=== PATIENT | male | born 1990 | race African-American/Black ===

== ENCOUNTER 2023-06-11 11:50 | Inpatient (IN) | payer SELFPAY ==
--- OUTSIDE RECORDS SUMMARY | 2023-06-11 11:53 | XMS REPORT | Continuity of Care Document ---
Author Name Unknown Address [address] [facility] [address] [place] [address] [facility] thconnect Address [address] [facility] [address] [place] [address] Care Team Providers Care Presidential Support Specialist Name Role Phone Margaret Denise Primary Care Physician + [phone] NAJMA RAMAN Attending Clinician Unavaila NAJMA Cohn Attending Clinician Unavaila CHINO Mcgarry Attending Clinician Unavailable Jigna Kirk LMSW Attending Clinician [phone] MARGARET QUIROZ Attending Clinician Unavailable Margaret Denise Attending Clinician [phone] Najma Raman MD Attending Clinician + [phone] Doctor Unassigned, Basye Attending Clinician U CECIL Howard Attending Clinician Unavailable Cecil Hawley MD Attending Clinician [phone] Sherrie Solano Attending Clinician [phone] Marly Darling Attending Clinician [phone] MARLY MENESES Attending Clinician UnavailFELICITA Gustafson Attending Clinician Unavailable Chino Calix MD Attending Clinician [phone] KIMBERLY BRENNER Attending Clinician Unavailable Kimberly Brenner MD Attending Clinician +[phone] Michelle Lilly Attending Clinician MICHELLE RICHMOND Attending Clinician Unavailabl Lebron Poe MD Attending Clinician LEBRON MADISON Attending Clinician Unavailable Marlo Dominguez MD Attending Clinician MARLO DOMINGUEZ Attending Clinician Unavailable CECIL HAWLEY Admitting Clinician Unavailable Lebron Madison MD Admitting Clinician [phone] LEBRON MADISON Admitting Clinician Unavailable Problems Condition Name Condition Details Condition Category Status Onset Date Resolution Date Last Treatment Date Treating Clinician Comments Source PRASANTH (obstructi ve sleep apnea) PRASANTH (obstructi ve sleep apnea) Disease Active 2021-06 00:00: 00 [facility] No known active problems No known active problems Disease [facility] Allergies, Adverse Reactions, Alerts Allergy Name Allergy Type Status Severity Reaction(s) Onset Date Inactive Date Treating Clinician Comments Source NO KNOWN ALLERGIE S Drug Class Active [facility] Social History Social Habit Start Date Stop Date Quantity Comments Source History SDOH Alcohol Frequency [facility] History SDOH Alcohol Std Drinks [facility] History SDOH Alcohol Binge [facility] to SARS-CoV-2 (event) 2022-03-04 00:00:00 2022-03-14 11:03:00 Not sure [facility] Alcohol intake 2022-02-20 00:00:00 2022-02-20 00:00:00 .29 /d [facility] History of Social function 2022-02-19 00:00:00 2022-02-19 00:00:00 [facility] Tobacco use and exposure 2020-11-21 00:00:00 2020-11-21 00:00:00 Smokeless tobacco non-user [facility] Alcohol Comment 2020-11-21 00:00:00 2020-11-21 00:00:00 ocassionally [facility] Sex Assigned At 1990 00:00:00 1990 00:00:00 [facility] Smoking Status Start Date Stop Date Source Never smoked tobacco [facility] Medications Ordered Medication Name Filled Medication Name Start Date Stop Date Current Medication? Ordering Clinician Indication Dosage Frequency Signature (SIG) Comments Components Source amLODIPine 5 mg tablet 2021-06 0 00:00: 00 Yes [id number] 5mg Take 1 tablet by mouth in the morning. [facility] amLODIPine 5 mg tablet 2021-06 0 00:00: 00 Yes [id number] 5mg Take 1 tablet by mouth in the morning. [facility] amLODIPine 5 mg tablet 2021-06 00:00: 00 Yes [id number] 5mg Take 1 tablet by mouth in the morning. [facility] amLODIPine 5 mg tablet 2021-06 00:00: 00 Yes [id number] 5mg Take 1 tablet by mouth in the morning. [facility] metoprolol succinate XL 50 mg 24 hr tablet 02-19 00:00: 00 Yes [id number] 50mg Take 1 tablet by mouth in the morning. [facility] metoprolol succinate XL 50 mg 24 hr tablet 0 02-19 00:00: 00 Yes [id number] 50mg Take 1 tablet by mouth in the morning. [facility] metoprolol succinate XL 50 mg 24 hr tablet 0 02-19 00:00: 00 Yes [id number] 50mg Take 1 tablet by mouth in the morning. [facility] metoprolol succinate XL 50 mg 24 hr tablet 0 02-19 00:00: 00 Yes [id number] 50mg Take 1 tablet by mouth in the morning. [facility] metoprolol succinate XL 50 mg 24 hr tablet 0 02-19 00:00: 00 Yes [id number] 50mg Take 1 tablet by mouth in the morning. [facility] metoprolol succinate XL 50 mg 24 hr tablet 0 02-19 00:00: 00 Yes [id number] 50mg Take 1 tablet by mouth in the morning. [facility] metoprolol succinate XL 50 mg 24 hr tablet 2021-0 02-19 00:00: 00 Yes [id number] 50mg Take 1 tablet by mouth in the morning. [facility] metoprolol succinate XL 50 mg 24 hr tablet 9-14 00:00: 00 Yes [id number] 50mg Take 1 tablet by mouth in the morning. [facility] metoprolol succinate XL 50 mg 24 hr tablet 14 00:00: 00 Yes [id number] 50mg Take 1 tablet by mouth in the morning. [facility] metoprolol succinate XL 50 mg 24 hr tablet 8-06 00:00: 00 02-19 00:00 :00 No [id number] 50mg Take 1 tablet by mouth daily. [facility] Blood Pressure Kit-Extra Large Kit 16 00:00: 00 Yes [id number] Use as directed [facility] lisinopriL- hydrochloro thiazide 20-25 mg per tablet 11-21 00:00: 00 Yes [id number] 1{tbl} Take 1 tablet by mouth daily. [facility] Blood Pressure Kit-Extra Large Kit 11-21 00:00: 00 Yes [id number] Use as directed [facility] lisinopriL- hydrochloro thiazide 20-25 mg per tablet 11-21 00:00: 00 Yes [id number] 1{tbl} Take 1 tablet by mouth daily. [facility] Blood Pressure Kit-Extra Large Kit 11-21 00:00: 00 Yes [id number] Use as directed [facility] lisinopriL- hydrochloro thiazide 20-25 mg per tablet 0 16 00:00: 00 Yes [id number] 1{tbl} Take 1 tablet by mouth daily. [facility] Blood Pressure Kit-Extra Large Kit 0 16 00:00: 00 Yes [id number] Use as directed [facility] lisinopriL- hydrochloro thiazide 20-25 mg per tablet 0 16 00:00: 00 Yes [id number] 1{tbl} Take 1 tablet by mouth daily. [facility] Blood Pressure Kit-Extra Large Kit 0 6-16 00:00: 00 Yes [id number] Use as directed [facility] Blood Pressure Kit-Extra Large Kit 0 11-21 00:00: 00 Yes [id number] Use as directed [facility] Blood Pressure Kit-Extra Large Kit 0 11-21 00:00: 00 Yes [id number] Use as directed [facility] Blood Pressure Kit-Extra Large Kit 0 11-21 00:00: 00 Yes [id number] Use as directed [facility] Blood Pressure Kit-Extra Large Kit 0 11-21 00:00: 00 Yes [id number] Use as directed [facility] Blood Pressure Kit-Extra Large Kit 0 11-21 00:00: 00 Yes [id number] Use as directed [facility] lisinopriL- hydrochloro thiazide 20-25 mg per tablet 11-21 00:00: 00 03-14 00:00 :00 No [id number] 1{tbl} Take 1 tablet by mouth daily. [facility] lisinopriL- hydrochloro thiazide 20-25 mg per tablet 11-21 00:00: 00 03-14 00:00 :00 No [id number] 1{tbl} Take 1 tablet by mouth daily. [facility] Vital Signs Vital Name Observation Time Observation Value Comments S ourswapnil Systolic blood pressure 2022-03-14 16:16:00 170 mm[Hg] [facility] Diastolic blood pressure 2022-03-14 16:16:00 102 mm[Hg] [facility] Heart rate 2022-03-14 16:15:00 79 /min [facility] Body temperature 2022-03-14 16:15:00 36.61 [facility] Body height 2022-03-14 16:15:00 180.3 cm [facility] Body weight 2022-03-14 16:15:00 169.101 kg [facility] BMI 2022-03-14 16:15:00 52.00 kg/m2 [facility] Oxygen saturation in Arterial blood by Pulse oximetry 2022-03-14 16:15:00 95 /min [facility] Systolic blood pressure 2022-03-06 21:00:00 183 mm[Hg] [facility] Diastolic blood pressure 2022-03-06 21:00:00 138 mm[Hg] [facility] Heart rate 2022-03-06 21:00:00 95 /min [facility] Body temperature 2022-03-06 20:46:00 36.72 [facility] Respiratory rate 2022-03-06 20:46:00 16 /min [facility] Body height 2022-03-06 20:46:00 177.8 cm [facility] Body weight 2022-03-06 20:46:00 169.691 kg [facility] BMI 2022-03-06 20:46:00 53.68 kg/m2 [facility] Oxygen saturation in Arterial blood by Pulse oximetry 2022-03-06 20:46:00 96 /min [facility] Systolic blood pressure 2022-02-19 16:06:00 177 mm[Hg] [facility] Diastolic blood pressure 2022-02-19 16:06:00 121 mm[Hg] [facility] Heart rate 2022-02-19 16:05:00 120 /min [facility] Encounters Start Date/Time End Date/Time Encounter Type Admission Type Attending Clinicians Care Facility Care Department Encounter ID Source 2022-06-19 10:00:00 2022-06-19 10:00:00 Outpatient NAJMA LAGUNA STRAHIL [facility] [id number] [facility] 2022-04-30 14:30:00 2022-04-30 14:30:00 Outpatient NAJMA LAGUNA STRAH[facility] [id number] [facility] 2022-04-09 10:40:00 2022-04-09 10:40:00 Outpatient NAJMA LAGUNA [facility]AH[facility] [id number] [facility] 2022-03-27 10:00:00 2022-03-27 10:00:00 Outpatient R NAJMA RAMAN [facility] [id number] [facility] 2022-03-17 00:00:00 2022-03-17 00:00:00 Patient Outreach Jigna Kirk [facility] 1.2.840.114 350.1.13.10 4.2.7.2.686 [id number] [facility] 2022-03-14 11:30:00 2022-03-14 11:48:06 Outpatient R MARGARET QUIROZ [facility] [id number] [facility] 2022-03-14 11:30:00 2022-03-14 11:48:06 Office Visit Margaret Quiroz [facility] 1.2.840.114 350.1.13.10 4.2.7.2.686 [id number] [facility] 2022-03-12 00:00:00 2022-03-12 00:00:00 Letter (Out) Margaret Quiroz [facility] 1.2.840.114 350.1.13.10 4.2.7.2.686 [id number] [facility] 2022-03-06 15:30:00 2022-03-06 16:00:00 [facility] 1..840.114 350.1.13.10 4.2.7.2.686 [id number] [facility] 2022-03-06 15:30:00 2022-03-06 15:30:00 Outpatient R NAJMA RAMAN [facility] [id number] [facility] 2022-02-27 13:30:00 2022-02-27 13:30:00 Outpatient R NAJMA RAMAN [facility] [id number] [facility] 2022-02-26 00:00:00 2022-02-26 00:00:00 Patient Secure Msg Doctor Unassigned, Basye [facility] 1.840.114 350.1.13.10 4.2.7.2.686 [id number] [facility] 2022-02-20 00:00:00 2022-02-20 00:00:00 Patient Secure Msg Doctor Unassigned, Basye [facility] 1.840.114 350.1.13.10 4.2.7.2.686 [id number] [facility] 2022-02-19 12:21:00 2022-02-19 16:51:00 Emergency X CECIL HAWLEY [facility] ERT [id number] [facility] 2022-02-19 12:21:00 2022-02-19 16:51:00 Emergency Cecil Hawley [facility] 1.840.114 350.1.13.10 4.2.7.2.686 [id number] [facility] 2022-02-19 12:21:00 2022-02-19 16:51:00 Emergency X CECIL HAWLEY [facility] ERT [id number] [facility] 2022-02-19 11:00:00 2022-02-19 14:10:28 Office Visit Margaret Quiroz [facility] 1.840.114 350.1.13.10 4.2.7.2.686 [id number] [facility] 2022-02-19 11:00:00 2022-02-19 14:10:28 Outpatient R MARGARET QUIROZ [facility] [id number] [facility] 2022-02-19 11:00:00 2022-02-19 11:00:00 Outpatient R MARGARET QUIROZ [facility] [id number] [facility] 2022-02-19 00:00:00 2022-02-19 00:00:00 Orders Only Doctor Unassigned, Basye [facility] 1.2.840.114 350.1.13.10 4.2.7.2.686 [id number] [facility] 2021-03-05 14:15:00 2021-03-05 23:59:00 Hospital Encounter Sherrie Dupont [facility] ([facility] 1.2.840.114 350.1.13.10 4.2.7.2.686 [id number] [facility] 2021-03-05 13:52:25 2021-03-05 14:22:25 Office Visit Sherrie Dupont [facility] Building 1.2.840.114 350.1.13.10 4.2.7.2.686 [id number] [facility] 2021-03-05 13:30:00 2021-03-05 13:30:00 Outpatient R MARLY MENESES [facility] [id number] [facility] 2021-01-22 15:20:00 2021-01-22 15:20:00 Outpatient R FELICITA HEBERT [facility] [id number] [facility] 2021-01-11 10:15:10 2021-01-11 11:01:19 Office Visit Chino Calix [facility] [employer] [facility] 1.2.840.114 350.1.13.10 4.2.7.2.686 [id number] [facility] 2021-01-11 10:20:00 2021-01-11 10:20:00 Outpatient R CHINO CALIX [facility] [id number] [facility] 2021-01-08 14:00:00 2021-01-08 14:00:00 Outpatient R JESUSKIMBERLY [facility] [id number] [facility] 2020-12-10 00:00:00 2020-12-10 00:00:00 Orders Only Doctor Unassigned, Basye [facility] 1.2840.114 350.1.13.10 4.2.7.2.686 [id number] [facility] 2020-11-30 00:00:00 2020-11-30 00:00:00 Telephone Kimberly Brenner [facility] 1.2.840.114 350.1.13.10 4.2.7.2.686 [id number] [facility] 2020-11-29 00:00:00 2020-11-29 00:00:00 Telephone Kimberly Brenner [facility] 1.2840.114 350.1.13.10 4.2.7.2.686 [id number] [facility] 2020-11-21 08:43:27 2020-11-21 10:18:04 Office Visit Michelle [facility] 1.2840.114 350.1.13.10 4.2.7.2.686 [id number] [facility] 2020-11-21 09:00:00 2020-11-21 09:00:00 Outpatient R MICHELLE RICHMOND [facility] [id number] [facility] 2020-11-21 00:00:00 2020-11-21 00:00:00 Orders Only Doctor Unassigned, Basye [facility] 1.2840.114 350.1.13.10 4.2.7.2.686 [id number] [facility] 2020-09-22 14:10:00 2020-09-22 16:16:00 Emergency Person Le[facility] 1.2.840.114 350.1.13.10 4.2.7.2.686 [id number] [facility] 2020-09-22 14:04:00 2020-09-22 14:04:00 Emergency X UGO MADISONSHUA [facility] ERT [id number] [facility] 2020-09-22 10:35:00 2020-09-22 13:00:00 Emergency Marlo Dominguez [facility] 1.2.840.114 350.1.13.10 4.2.7.2.686 [id number] [facility] 2020-09-22 10:35:00 2020-09-22 10:35:00 Emergency X MARLO DOMINGUEZ [facility] ERT [id number] [facility]
[2023-06-11 12:34] LABS: Absolute Lymphocytes (CBC) 1.6 K/uL (0.7-4.9); Hematocrit 41.7 % (39.6-49.0); Lymphocytes % 26.3 % (15.3-44.8); MCV 82.6 fL (80-100); MPV 9.6 fL (7.6-11.3); Platelets 148 thou/uL (152-406); RBC Red Blood Cell Count 5.04 M/uL (4.33-5.43)
[2023-06-11 12:51] LABS: Potassium 2.8 mEq/L (3.5-5.1)
[2023-06-11 13:33] LABS: Arterial Blood Carboxyhemoglob 1.1 % (0-1.5); Blood Gas Oxyhemoglobin 73.7 % (94-97)
--- NOTE | 2023-06-11 13:38 | ER ---
Nurse's Notes [facility] Name: Lebron Lewis Age: 33 yrs Sex: Male : 1990 Arrival Date: 06/11/2023 Time: 11:50 Bed 17 Private MD: Diagnosis: Diabetic ketoacidosis;Diabetes;Hyperglycemia, unspecified;Hypokalemia Presentation: 06/11 11:57 Chief complaint: Patient states: "I went to a clinic and they said to come here because aa5 my blood pressure is high". Pt reports fatigue. Coronavirus screen: fatigue. Ebola Screen: Patient denies travel to an Ebola-affected area in the 21 days before illness onset. Initial Sepsis Screen: Does the patient meet any 2 criteria? HR > 90 bpm. Does the patient have a suspected source of infection? No. Patient's initial sepsis screen is negative. Risk Assessment: Do you want to hurt yourself or someone else? Patient reports no desire to harm self or others. Onset of symptoms was June 11, 2023. 11:57 Method Of Arrival: Ambulatory aa5 11:57 Acuity: ROBERTA 3 aa5 Historical: - Allergies: 12:00 No Known Allergies; aa5 - Home Meds: 12:00 None [Active]; aa5 - PMHx: 12:00 None; aa5 - Immunization history:: Adult Immunizations unknown. - Social history:: Smoking status: Patient denies any tobacco usage or history of. Screenin:55 [facility] ED Fall Risk Assessment (Adult) History of falling in the last 3 months, db including since admission No falls in past 3 months (0 pts). [facility] ED Fall Risk Assessment (Adult) Score/Fall Risk Level 0 - 2 = Low Risk Oriented to surroundings, Maintained a safe environment. Abuse screen: Denies threats or abuse. Denies injuries from another. Nutritional screening: No deficits noted. Tuberculosis screening: No symptoms or risk factors identified. Assessment: 12:41 Reassessment: Patient appears in no apparent distress at this time. Patient and/or db family updated on plan of care and expected duration. Pain level reassessed. Patient is alert, oriented x 3, equal unlabored respirations, skin warm/dry/pink. General: Appears in no apparent distress. comfortable, Behavior is calm, cooperative. Pain: Denies pain. Neuro: Level of Consciousness is awake, alert, obeys commands, Oriented to person, place, time, situation. Respiratory: Airway is patent Respiratory effort is even, unlabored, Respiratory pattern is regular, symmetrical. 14:55 Reassessment: Patient appears in no apparent distress at this time. Patient and/or db family updated on plan of care and expected duration. Pain level reassessed. Patient is alert, oriented x 3, equal unlabored respirations, skin warm/dry/pink. 16:27 Reassessment: Patient appears in no apparent distress at this time. Patient and/or db family updated on plan of care and expected duration. Pain level reassessed. Patient is alert, oriented x 3, equal unlabored respirations, skin warm/dry/pink. 18:00 Reassessment: Patient appears in no apparent distress at this time. Patient and/or db family updated on plan of care and expected duration. Pain level reassessed. Patient is alert, oriented x 3, equal unlabored respirations, skin warm/dry/pink. FAMILY IS AT BEDSIDE. Vital Signs: 11:57 BP 148 / 100; Pulse 95; Resp 18 S; Temp 97.2(TE); Pulse Ox 100% on R/A; Weight 149.69 aa5 kg (R); Height 5 ft. 11 in. (R); 13:30 BP 162 / 107; Pulse 93; Resp 16; Pulse Ox 100% on R/A; db 14:30 BP 127 / 88; Pulse 76; Resp 18; Pulse Ox 100% on R/A; db 15:00 BP 118 / 76; Pulse 73; Resp 18; Pulse Ox 100% on R/A; db 11:57 Body Mass Index 46.03 (149.69 kg, 180.34 cm) aa5 ED Course: 11:53 Patient arrived in ED. kj1 11:54 Carlos Hernadez DO is Attending Physician. ms3 11:57 Arm band placed on. aa5 11:58 Triage completed. aa5 12:03 Keri Armenta, SANDRA is Primary Nurse. db 12:15 No provider procedures requiring assistance completed. Inserted saline lock: 20 gauge db in right antecubital area, using aseptic technique. Blood collected. 12:33 EKG done, by ED staff. aw1 13:35 Marcel Padilla MD is Hospitalizing Provider. ms3 14:55 Patient has correct armband on for positive identification. Bed in low position. Call db light in reach. Side rails up X 1. Provided Education on: DISCHARGE. Client placed on continuous cardiac and pulse oximetry monitoring. NIBP monitoring applied. Warm blanket given. 18:04 Inserted saline lock: 22 gauge in left antecubital area, using aseptic technique. Blood ph collected. 18:56 Patient admitted, IV remains in place. db 06/12 10:47 Primary Nurse role handed off by Keri Armenta, RN bp 10:47 Carl Brown, RN is Primary Nurse. bp 19:15 Megan Gonzalez, RN is Primary Nurse. la4 Administered Medications: 06/11 13:55 Drug: Potassium PO Effervescent Tablet 50 mEq PO once; dissolve in 4 ounces of water or db juice Route: PO; 18:59 Follow up: Response: No adverse reaction db 13:55 Drug: NS 0.9% IV 1000 ml IV at 1 bolus Per protocol; 1000 mL bolus Route: IV; Rate: 1 db bolus; Site: right antecubital; 18:58 Follow up: Response: No adverse reaction; IV Status: Completed infusion; IV Intake: db 1000ml 13:55 Drug: NS 0.9% IV 1000 ml IV at 1000 ml once Route: IV; Rate: 1000 ml; Site: right db antecubital; 15:00 Follow up: Response: No adverse reaction; IV Status: Completed infusion; IV Intake: db 1000ml 14:25 Drug: Potassium Chloride IV 40 mEq IV at calculated rate once; administer over 2-4 db hours Route: IV; Rate: calculated rate; Site: right antecubital; 18:59 Follow up: Response: No adverse reaction; IV Status: Infusion continued upon admission; db IV Intake: 200ml Medication: 18:56 VIS not applicable for this client. db Intake: 15:00 IV: 1000ml; Total: 1000ml. db 18:58 IV: 1000ml; Total: 2000ml. db 18:59 IV: 200ml; Total: 2200ml. db Outcome: 13:37 Decision to Hospitalize by Provider. ms3 18:56 Admitted to ER Hold. Please see [facility] for further documentation. db 18:56 Condition: stable 18:56 Instructed on the need for admit, 06/13 17:51 Patient left the ED. hb Signatures: Mary Ann Richards RN RN aa5 Kamla Tao RN RN ph Katey Phelps RN RN hb Carl Brown RN RN bp Dylon, Marip[place] kj1 Carlos Hernadez DO DO ms3 Keri Armenta RN RN db Bentley, Ashley aw1 Megan Gonzalez RN RN la4 Corrections: (The following items were deleted from the chart) 06/11 11:59 11:57 Chief complaint: Patient states: "I went to a clinic and they said to come here aa5 because my blood pressure is high". aa5 12:01 11:57 BP 148 / 100; Pulse 95bpm; Resp 18bpm; Spontaneous; Pulse Ox 100% RA; aa5 aa5
--- NOTE | 2023-06-11 13:38 | EDPHYS ---
Physician Documentation [facility] Name: Lebron Lewis Age: 33 yrs Sex: Male : 1990 Arrival Date: 06/11/2023 Time: 11:50 Bed 17 Private MD: ED Physician HPI: 06/11 12:02 This 33 yrs old Black Male presents to ER via Ambulatory with complaints of High Blood ok3 Pressure. 12:02 33-year-old male with no past medical history [place] [facility] [place] [facility] [place] for elevated blood pressure. Patient denies headache, chest pain, shortness of breath, nausea, vomiting, pain. Patient denies any alleviating or inciting factors.. Historical: - Allergies: 12:00 No Known Allergies; aa5 - Home Meds: 12:00 None [Active]; aa5 - PMHx: 12:00 None; aa5 - Immunization history:: Adult Immunizations unknown. - Social history:: Smoking status: Patient denies any tobacco usage or history of. ROS: 12:02 Constitutional: Negative for fever, and chills. Neck: Negative for injury, pain, and ms3 swelling, Cardiovascular: Negative for chest pain, and palpitations. Respiratory: Negative for shortness of breath, cough, wheezing, and pleuritic chest pain, Abdomen/GI: Negative for abdominal pain, nausea, vomiting, diarrhea, and constipation, MS/Extremity: Negative for injury and deformity, Skin: Negative for injury, rash, and discoloration, 12:02 All other systems are negative, Exam: 12:02 Constitutional: This is a well developed, well nourished patient who is awake, alert, ms3 and in no acute distress. Head/Face: Normocephalic, atraumatic. Chest/axilla: Normal chest wall appearance and motion. Nontender with no deformity. Cardiovascular: Regular rate and rhythm with a normal S1 and S2. No gallops, murmurs, or rubs. Normal PMI, no JVD. No pulse deficits. Respiratory: Lungs have equal breath sounds bilaterally, clear to auscultation and percussion. No rales, rhonchi or wheezes noted. No increased work of breathing, no retractions or nasal flaring. Abdomen/GI: Soft, non-tender, with normal bowel sounds. No distension or tympany. No guarding or rebound. No evidence of tenderness throughout. MS/ Extremity: Pulses equal, no cyanosis. Neurovascular intact. Full, normal range of motion. 13:57 ECG was reviewed by the Attending Physician. ms3 Vital Signs: 11:57 BP 148 / 100; Pulse 95; Resp 18 S; Temp 97.2(TE); Pulse Ox 100% on R/A; Weight 149.69 aa5 kg (R); Height 5 ft. 11 in. (R); 13:30 BP 162 / 107; Pulse 93; Resp 16; Pulse Ox 100% on R/A; db 14:30 BP 127 / 88; Pulse 76; Resp 18; Pulse Ox 100% on R/A; db 15:00 BP 118 / 76; Pulse 73; Resp 18; Pulse Ox 100% on R/A; db 11:57 Body Mass Index 46.03 (149.69 kg, 180.34 cm) aa5 MDM: 12:02 Patient medically screened. ms3 12:02 Differential diagnosis: hypertensive crisis, Renal insufficiency versus electrolyte ms3 abnormality. 13:38 Data reviewed: vital signs, nurses notes, lab test result(s), and as a result, I will ms3 discharge patient. Consideration of Admission/Observation Patient was admitted/placed on observation. Management of patient was discussed with the following: Hospitalist: Dr Padilla. I considered the following discharge prescriptions or medication management in the emergency department Medications were administered in the Emergency Department. See MAR. Independent interpretation of the following test(s) in the Emergency Department EKG: See my EKG interpretation above. Counseling: I had a detailed discussion with the patient and/or guardian regarding the historical points, exam findings, and any diagnostic results supporting the discharge/admit diagnosis, lab results, the need for further work-up and treatment in the hospital. ED course: Discussed diagnosis and necessity for admission with patient. Patient understands agrees with plan. All questions were answered. 06/11 12:02 Order name: Basic Metabolic Panel; Complete Time: 13:06 ms3 06/11 12:02 Order name: CBC with Diff; Complete Time: 12:43 ms3 06/11 13:07 Order name: ABG: VBG; Complete Time: 13:38 ms3 06/11 13:27 Order name: Urine W/Microscopic (UAM); Complete Time: 14:28 la1 06/11 13:33 Order name: Phosphorus; Complete Time: 14:28 ms3 06/11 13:34 Order name: Magnesium; Complete Time: 14:28 ms3 06/11 14:31 Order name: T4 Free; Complete Time: 15:07 EDMS 06/11 14:31 Order name: Thyroid Stimulating Hormone; Complete Time: 15:07 EDMS 06/11 14:31 Order name: Basic Metabolic Panel EDMS 06/11 14:31 Order name: Basic Metabolic Panel EDMS 06/11 14:31 Order name: Basic Metabolic Panel EDMS 06/11 14:31 Order name: Basic Metabolic Panel EDMS 06/11 14:31 Order name: Basic Metabolic Panel EDMS 06/11 14:31 Order name: Basic Metabolic Panel EDMS 06/11 14:31 Order name: Basic Metabolic Panel EDMS 06/11 14:31 Order name: Hemoglobin A1c EDMS 06/11 14:31 Order name: Hemoglobin A1c EDMS 06/11 14:31 Order name: Lipid Profile EDMS 06/11 14:31 Order name: Lipid Profile EDMS 06/11 14:31 Order name: Magnesium EDMS 06/11 14:31 Order name: Magnesium EDMS 06/11 14:31 Order name: Magnesium EDMS 06/11 14:31 Order name: Magnesium EDMS 06/11 14:31 Order name: Phosphorus EDMS 06/11 14:31 Order name: Phosphorus EDMS 06/11 14:31 Order name: Phosphorus EDMS 06/11 14:31 Order name: Phosphorus EDMS 06/11 20:37 Order name: Glucose, Ancillary Testing EDMS 06/11 21:24 Order name: Glucose, Ancillary Testing EDMS 06/11 22:15 Order name: Glucose, Ancillary Testing EDMS 06/11 23:40 Order name: Glucose, Ancillary Testing EDMS 06/12 00:37 Order name: Glucose, Ancillary Testing EDMS 06/12 02:09 Order name: Glucose, Ancillary Testing EDMS 06/12 03:01 Order name: Glucose, Ancillary Testing EDMS 06/12 03:50 Order name: Glucose, Ancillary Testing EDMS 06/12 05:01 Order name: Glucose, Ancillary Testing EDMS 06/12 06:40 Order name: Glucose, Ancillary Testing EDMS 06/12 07:50 Order name: Glucose, Ancillary Testing EDMS 06/12 09:05 Order name: Glucose, Ancillary Testing EDMS 06/12 12:07 Order name: Lipid Profile EDMS 06/12 12:18 Order name: LDL, Direct EDMS 06/12 12:32 Order name: Hemoglobin A1c EDMS 06/12 13:19 Order name: Glucose, Ancillary Testing EDMS 06/12 14:15 Order name: Glucose, Ancillary Testing EDMS 06/12 15:16 Order name: Glucose, Ancillary Testing EDMS 06/12 16:17 Order name: Glucose, Ancillary Testing EDMS 06/12 17:20 Order name: Glucose, Ancillary Testing EDMS 06/12 17:40 Order name: Basic Metabolic Panel EDMS 06/12 18:20 Order name: Glucose, Ancillary Testing EDMS 06/12 19:28 Order name: Glucose, Ancillary Testing EDMS 06/12 20:29 Order name: Glucose, Ancillary Testing EDMS 06/12 21:22 Order name: Glucose, Ancillary Testing EDMS 06/12 22:21 Order name: Basic Metabolic Panel EDMS 06/12 22:25 Order name: Glucose, Ancillary Testing EDMS 06/12 23:15 Order name: Glucose, Ancillary Testing EDMS 06/13 00:16 Order name: Glucose, Ancillary Testing EDMS 06/13 01:23 Order name: Glucose, Ancillary Testing EDMS 06/13 01:41 Order name: Basic Metabolic Panel EDMS 06/13 02:18 Order name: Glucose, Ancillary Testing EDMS 06/13 04:14 Order name: Glucose, Ancillary Testing EDMS 06/13 05:11 Order name: Glucose, Ancillary Testing EDMS 06/13 05:21 Order name: CBC without Diff EDMS 06/13 05:23 Order name: Protime (+INR) EDMS 06/13 05:37 Order name: Basic Metabolic Panel EDMS 06/13 05:37 Order name: Liver (Hepatic) Function EDMS 06/13 07:20 Order name: Glucose, Ancillary Testing EDMS 06/13 08:11 Order name: Glucose, Ancillary Testing EDMS 06/13 09:14 Order name: Glucose, Ancillary Testing EDMS 06/13 10:19 Order name: Glucose, Ancillary Testing EDMS 06/13 10:24 Order name: Basic Metabolic Panel EDMS 06/13 11:17 Order name: Glucose, Ancillary Testing EDMS 06/13 12:19 Order name: Glucose, Ancillary Testing EDMS 06/13 13:25 Order name: Glucose, Ancillary Testing EDMS 06/13 13:53 Order name: Basic Metabolic Panel EDMS 06/13 14:32 Order name: Glucose, Ancillary Testing EDMS 06/13 15:27 Order name: Glucose, Ancillary Testing EDMS 06/13 16:29 Order name: Glucose, Ancillary Testing EDMS 06/13 17:15 Order name: Glucose, Ancillary Testing EDMS 06/11 12:02 Order name: EKG; Complete Time: 12:02 ms3 06/11 12:02 Order name: EKG - Nurse/Tech; Complete Time: 12:34 ms3 06/11 12:02 Order name: IV Saline Lock; Complete Time: 12:41 ms3 06/11 12:02 Order name: Labs collected and sent; Complete Time: 12:41 ms3 06/11 12:02 Order name: O2 Per Protocol; Complete Time: 12:41 ms3 06/11 12:02 Order name: O2 Sat Monitoring; Complete Time: 12:41 ms3 06/12 16:27 Order name: Labs - recollect needed: green top; Complete Time: 16:44 kb EC:57 Rate is 79 beats/min. Rhythm is regular. QRS [place] is Normal. RI interval is normal. QRS ms3 interval is normal. Clinical impression: NSR w/ Non-specific ST/T Changes. Interpreted by me. Reviewed by me. Administered Medications: 13:55 Drug: Potassium PO Effervescent Tablet 50 mEq PO once; dissolve in 4 ounces of water or db juice Route: PO; 18:59 Follow up: Response: No adverse reaction db 13:55 Drug: NS 0.9% IV 1000 ml IV at 1 bolus Per protocol; 1000 mL bolus Route: IV; Rate: 1 db bolus; Site: right antecubital; 18:58 Follow up: Response: No adverse reaction; IV Status: Completed infusion; IV Intake: db 1000ml 13:55 Drug: NS 0.9% IV 1000 ml IV at 1000 ml once Route: IV; Rate: 1000 ml; Site: right db antecubital; 15:00 Follow up: Response: No adverse reaction; IV Status: Completed infusion; IV Intake: db 1000ml 14:25 Drug: Potassium Chloride IV 40 mEq IV at calculated rate once; administer over 2-4 db hours Route: IV; Rate: calculated rate; Site: right antecubital; 18:59 Follow up: Response: No adverse reaction; IV Status: Infusion continued upon admission; db IV Intake: 200ml Disposition Summary: 06/11/23 13:37 Hospitalization Ordered Notes: Hospitalization Status: Inpatient Admission ms3 Provider: Marcel Padilla ms3 Condition: Stable ms3 Problem: new ms3 Symptoms: are unchanged ms3 Bed/Room Type: Standard ms3 Location: Intensive Care Unit(06/13/23 17:00) eb Room Assignment: 5-(06/13/23 17:00) eb Diagnosis - Diabetic ketoacidosis ms3 - Diabetes ms3 - Hyperglycemia, unspecified ms3 - Hypokalemia ms3 Forms: - Medication Reconciliation Form ms3 - SBAR form ms3 - Leadership Thank You Letter ms3 Critical care time excluding procedures: 13:37 Critical care time: Bedside Care: 35 minutes, Consultation: 10 minutes, Family ms3 Intervention: 5 minutes. Total time: 50 minutes Signatures: Dispatcher [employer] EDLillie Schmid, SUSANNA WOOD MACHINIST APPRENTICE-Daveb Mary Ann Richards, RN RN aa5 Robert Camejo FNP-C FNP-Cla1 Jessica King Marcus, DO DO ms3 Pretty Pham, RN RN kb3 Keri Armenta, RN RN db Corrections: (The following items were deleted from the chart) 17:35 13:37 Intensive Care Unit ms3 kb3 17:35 13:37 ms3 kb3 06/13 17:00 04 17:35 [facility] ER HOLD kb3 eb 06/13 17:00 06/11 17:35 ERHOLD- kb3 eb
[2023-06-11] MEDS ORDERED: POTASSIUM 25 MEQ EFFERV TAB ONE (13:50)
[2023-06-11] MEDS ORDERED: NA CHLORIDE 0.9% 2,000 ML ONE (13:51)
[2023-06-11 14:07] LABS: Magnesium 2.2 mg/dL (1.6-2.4); Phosphorus 2.7 mg/dL (2.5-4.9)
[2023-06-11 14:24] LABS: Specific Gravity 1.028 (1.005-1.030); Urine Bacteria None Seen /HPF (<20); Urine Bilirubin NEGATIVE (Negative); Urine Blood 2+ (Negative); Urine Clarity Clear (Clear); Urine Color Light-Yellow (Yellow); Urine Glucose 4+ (Over) (Negative); Urine Granular Casts 0-5 /LPF (None Seen); Urine Mucus Slight /HPF (None Seen); Urine Protein 2+ (Negative); Urine RBC <5 /HPF (None Seen); Urine Urobilinogen Normal (Normal); Urine pH 5.5 (5.0-7.0)
[2023-06-11] MEDS ORDERED: KCL 20 MEQ/100 mL IVPB 200 ML IV ONE ×2 (14:24→22:47)
--- NOTE | 2023-06-11 14:27 | P.HP ---
Certification for Inpatient Patient admitted to: Inpatient With expected LOS: >2 Midnights Patient will require the following post-hospital care: None Practitioner: I am a practitioner with admitting privileges, knowledge of patient current condition, hospital course, and medical plan of care. Services: Services provided to patient in accordance with Admission requirements found in Title 42 Section 412.3 of the Code of Federal Regulations Patient History Date of Service: 06/11/23 Reason for admission: DKA History of Present Illness: 33-year-old male with no known medical history presents emergency department chief complaint of high blood pressure. He states that he went to a medical clinic including was referred to the emergency department for his elevated blood pressure. He also admits to feeling fatigued and having frequent urination for the past 1 month or so. He was evaluated in the emergency department his labs were significant for s odium 130 potassium 2.8 chloride 94 bicarb 14 creatinine 1.89 GFR 47 glucose 417 ABG revealed pH 7.3 pCO2 29.6 pO2 42.8 Potassium repletion has been initiated, patient has been admitted to the ICU for further management of DKA. - Past Medical/Surgical History -: None -: None Psychosocial/ Personal History: Patient lives at home with family - Family History Family History: Reviewed- Non-Contributory - Social History Smoking Status: Never smoker Alcohol use: No CD- Drugs: No Caffeine use: Yes Place of Residence: Home Review of Systems 10-point ROS is otherwise unremarkable General: Malaise Genitourinary: Other (Polyuria) Physical Examination - Physical Exam General: Alert, In no apparent distress, Oriented x3, Obese HEENT: Atraumatic, PERRLA, Mucous membr. moist/pink, EOMI Neck: Supple, 2+ carotid pulse no bruit, No LAD Respiratory: Clear to auscultation bilaterally, Normal air movement Cardiovascular: Regular rate/rhythm, Normal S1 S2 Gastrointestinal: Normal bowel sounds, No tenderness Musculoskeletal: No tenderness Integumentary: No rashes Neurological: Normal speech, Normal strength at 5/5 x4 extr, Normal tone, Normal affect - Studies Laboratory Data (last 24 hrs) 06/11/23 06/11/23 06/11/23 12:24 12:24 12:24 WBC 5.90 Hgb 14.2 Hct 41.7 Plt Count 148 L Sodium 130 L Potassium 2.8 L BUN 9 Creatinine 1.89 H Glucose 412 H* Phosphorus 2.7 Magnesium 2.2 Assessment and Plan - Plan Assessment: New onset diabetes mellitus type 2 with ketoacidosis Hypokalemia Acute kidney injury Hypertension Plan: New onset diabetes mellitus type 2 with ketoacidosis Hypokalemia Initial potassium 2.8, will replete prior to initiating insulin drip Magnesium and phosphorus within normal limits Once potassium improved start on insulin drip with hourly Accu-Cheks, ICU level of care Obtain A1c in the morning Will need to provide diabetes education Repeat chemistry 4 hours until anion gap closes Acute kidney injury Continue aggressive IV fluids Unclear renal baseline If there is notes of improvement will consider renal ultrasound, nephrology consult Hypertension Not on any blood pressure medications at home Monitor blood pressure hospitalization, may require initiation of new medication DVT PPX: Heparin subcu Code status: Full Discharge Plan: Home Plan to discharge in: Greater than 2 days - Advance Directives Does patient have a Living Will: No Does patient have a Durable POA for Healthcare: No - Code Status/Comfort Care Code Status Assessed: Yes (Full code) Critical Care: No Time Spent Managing Pts Care (In Minutes): 70
[2023-06-11] MEDS ORDERED: ONDANSETRON 4 MG/2 ML VIAL IV PRN (14:28)
[2023-06-11] MEDS: HEPARIN 5000 UNIT/ML 1 ML VIAL SQ SCH ×2 (15:00→22:40)
[2023-06-11 15:07] LABS: Thyroid Stimulating Hormone 2.2 uIU/mL (0.358-3.740)
[2023-06-11] MEDS: POTASSIUM CHLORIDE-0.45% NACL 20 MEQ/1,000 ML BAG IV SCH ×2 (16:00→21:40)
[2023-06-11 18:25] LABS: Potassium 3.1 mEq/L (3.5-5.1)
[2023-06-11] MEDS: D5.45NS W/KCL 20MEQ 1,000 ML IV SCH ×2 (20:00→22:40)
[2023-06-11] MEDS ORDERED: NS KCL 20MEQ 20 MEQ/1,000 ML BAG IV SCH (20:00)
[2023-06-11 20:59] LABS: Potassium 2.9 mEq/L (3.5-5.1)
[2023-06-11] MEDS ORDERED: HEPARIN 5000 UNIT/ML 1 ML VIAL ONE (22:23)
[2023-06-11] MEDS ORDERED: INSULIN REGULAR (HUMAN) 100 UNIT/ML ONE (22:24)
[2023-06-11] MEDS ORDERED: NA CHLORIDE 0.9% 100 ML ONE (22:25)
[2023-06-11] MEDS ORDERED: D5.45NS W/KCL 20MEQ 1,000 ML IV ONE (22:46)
[2023-06-11] MEDS ORDERED: POTASSIUM CL 40 MEQ in NA CHLORIDE 0.9% 500 ML IV SCH (23:00)
[2023-06-12] MEDS: INSULIN -REGULAR HUMAN 100 UNIT in NA CHLORIDE 0.9% 100 ML IV SCH ×4 (00:25→06:30)
[2023-06-12 01:44] LABS: Potassium 2.8 mEq/L (3.5-5.1)
[2023-06-12 05:25] LABS: Phosphorus 1.6 mg/dL (2.5-4.9)
[2023-06-12 05:26] LABS: Magnesium 2.1 mg/dL (1.6-2.4)
[2023-06-12] MEDS: D5.45NS W/KCL 20MEQ 1,000 ML IV SCH (05:40)
[2023-06-12] MEDS ORDERED: POTASSIUM 25 MEQ EFFERV TAB PO ONE (05:54)
[2023-06-12] MEDS ORDERED: KCL 20 MEQ/100 mL IVPB 20 MEQ/100 ML BAG IV SCH (06:00)
[2023-06-12] MEDS ORDERED: POTASSIUM PHOS 20 MM in NA CHLORIDE 0.9% 500 ML IV ONE (06:00)
[2023-06-12] MEDS ORDERED: POTASSIUM 25 MEQ EFFERV TAB ONE (06:34)
[2023-06-12] MEDS ORDERED: GLUCAGON 1 MG/VIAL IM PRN (06:47)
[2023-06-12] MEDS ORDERED: D50W 25 GM/50 ML SYRINGE IV PRN (06:47)
[2023-06-12] MEDS ORDERED: D10W 125 ML IV PRN (06:56)
[2023-06-12] MEDS ORDERED: Ringers Lactate 1,000 ML IV SCH ×2 (07:00→12:58)
[2023-06-12] MEDS: INSULIN 70/30 100 UNITS/ML SQ SCH (07:30)
[2023-06-12] MEDS ORDERED: PNEUMOCOCCAL VACCINE 0.5 ML IMVAC ONE (08:00)
[2023-06-12] MEDS ORDERED: INFLUENZA VACCINE (for 6+ mo) 0.5 ML DOSE IMVAC ONE (08:00)
[2023-06-12] MEDS ORDERED: INSULIN 70/30 100 UNITS/ML SQ ONE (08:29)
[2023-06-12] MEDS ORDERED: Ringers Lactate 1,000 ML IV ONE (08:30)
[2023-06-12] MEDS: lisinopriL 5 MG TAB PO SCH (09:00)
[2023-06-12] MEDS ORDERED: D10W 250 ML BAG IV PRN ×2 (09:24→12:56)
[2023-06-12 09:31] LABS: Potassium 3.2 mEq/L (3.5-5.1)
--- NOTE | 2023-06-12 09:31 | P.PN ---
Date of Service: 06/12/23 Subjective: No acute events overnight Tolerating diet ROS: 10 point ROS as noted above, otherwise negative Physical exam GEN: Alert, oriented, NAD HEENT: Normal conjunctiva, sclera anicteric CV: Regular rate and rhythm, no edema Pulm: Nonlabored respirations on room air ABD: Soft, nontender, nondistended MSK: No joint tenderness Integumentary: No rashes Neuro: Normal speech, normal affect Vitals reviewed Assessment: New onset diabetes mellitus type 2 with ketoacidosis Hypokalemia Acute kidney injury Hypertension Plan: New onset diabetes mellitus type 2 with ketoacidosis Hypokalemia Anion gap closed, insulin to be continued Initiated on 70/30 insulin 10 units twice daily with mild sliding scale Tolerating diet, dietitian consult in place to further discuss diabetes A1c greater than 14 Discussed new onset diabetes at length with patient will need insulin at discharge Acute kidney injury JUANJO resolved Hypertension Blood pressure elevated, started on lisinopril 5 mg daily T PPX: Heparin subcu Code status: Crop Pest Control Specialist Spent Managing Pts Care (In Minutes): 35 <Robert Camejo - Last Filed: 06/12/23 09:28> date of service: 04/12 Patient seen and examined on rounds, . Agree with plan of care as noted above by ASSEMBLY MANAGER Bashir with following corrections/additions: labs this morning noted closed anion gap and better glc levels, however look suspicious. given trend will repeat labs, if incorrect and still has gap/hyperglycemia, will get back on insulin drip <Marcel Padilla - Last Filed: 06/14/23 17:08>
[2023-06-12 10:51] LABS: Potassium 2.9 mEq/L (3.5-5.1)
[2023-06-12] MEDS ORDERED: INSULIN REGULAR (HUMAN) 100 UNIT/ML SQ SCH (11:30)
[2023-06-12 12:05] LABS: BUN Blood Urea Nitrogen 6 mg/dL (7-18); Bicarbonate 13 mEq/L (21-32); Glomerular Filtration Rate 64 ml/min (=/>90); Glucose Level 272 mg/dL (74-106); HDL Cholesterol 27 mg/dL (40-60); Sodium Level 134 mEq/L (136-145)
[2023-06-12 12:18] LABS: LDL, Direct 170 mg/dL (100-129)
[2023-06-12] MEDS: POTASSIUM CL SA 10 MEQ TAB PO ONE (13:17)
--- NOTE | 2023-06-12 13:40 | EKG ---
Test Date: 2023-06-11 Test Time: 12:28:31 [place]: SIN MEASUREMENT RESULTS: Intervals: Rate: 79 PA: 138 QRSD: 98 QT: 364 QTc: 417 [place]: P: 53 PA: 138 QRS: 67 T: -19 INTERPRETIVE STATEMENTS: Normal sinus rhythm T wave abnormality, consider inferior ischemia Abnormal ECG No previous ECG available for comparison Electronically Signed On 06-12-23 13:38:55 DIESEL ENGINE ENGINEER by Hoang Ordaz
[2023-06-12] MEDS ORDERED: POTASSIUM CL SA 10 MEQ TAB PO ONE ×3 (13:53→18:50)
[2023-06-12] MEDS ORDERED: HEPARIN 5000 UNIT/ML 1 ML VIAL ONE ×2 (13:53→21:28)
[2023-06-12] MEDS: HEPARIN 5000 UNIT/ML 1 ML VIAL SQ SCH ×2 (14:00→21:00)
[2023-06-12] MEDS ORDERED: INSULIN -REGULAR HUMAN 100 UNIT in NA CHLORIDE 0.9% 100 ML IV SCH (14:00)
[2023-06-12] MEDS: NACHLORIDE 0.45% 1,000 ML with POTASSIUM CL 20 MEQ IV SCH ×4 (14:00→20:44)
[2023-06-12 16:12] VITALS: BMI 46.1
[2023-06-12 17:39] LABS: Potassium 2.8 mEq/L (3.5-5.1)
[2023-06-12] MEDS ORDERED: MAGNESIUM SULFATE 1 gm IVPB 1 GM/100 ML BAG IV ONE ×2 (17:59→18:50)
[2023-06-12] MEDS: ATORVASTATIN 40 MG TAB PO SCH (21:00)
[2023-06-12] MEDS ORDERED: ATORVASTATIN 40 MG TAB ONE (21:28)
[2023-06-12] MEDS ORDERED: KCL 20 MEQ/100 mL IVPB 100 ML IV ONE (21:58)
[2023-06-12] MEDS ORDERED: NACHLORIDE 0.45% 1,000 ML IV ONE (21:58)
[2023-06-13 01:41] LABS: Potassium 2.8 mEq/L (3.5-5.1)
[2023-06-13] MEDS ORDERED: GLUCAGON 1 MG/VIAL IM PRN (01:43)
[2023-06-13] MEDS ORDERED: D50W 25 GM/50 ML SYRINGE IV PRN ×2 (01:43→20:05)
[2023-06-13] MEDS: NACHLORIDE 0.45% 1,000 ML with POTASSIUM CL 20 MEQ IV SCH ×2 (03:28)
[2023-06-13 05:13] LABS: Hematocrit 39.1 % (39.6-49.0); MCV 81.9 fL (80-100); MPV 9.4 fL (7.6-11.3); Platelets 137 thou/uL (152-406); RBC Red Blood Cell Count 4.77 M/uL (4.33-5.43)
[2023-06-13 05:23] LABS: Protime INR 1.04
[2023-06-13 05:37] LABS: Albumin 3.2 g/dL (3.4-5.0); Bilirubin Direct 0.3 mg/dL (0-0.2); Bilirubin Indirect, Calculated 0.5 mg/dL (0.2-0.8); Bilirubin Total 0.8 mg/dL (0.2-1.0); Phosphorus 1.9 mg/dL (2.5-4.9); Potassium 2.9 mEq/L (3.5-5.1); Protein, Total 6.8 g/dL (6.4-8.2)
[2023-06-13] MEDS ORDERED: D5.45NS W/KCL 20MEQ 20 MEQ/1,000 ML BAG IV SCH ×2 (06:00→13:00)
[2023-06-13] MEDS ORDERED: POTASSIUM 25 MEQ EFFERV TAB PO ONE ×2 (06:07→22:00)
[2023-06-13] MEDS ORDERED: D5.45NS W/KCL 20MEQ 1,000 ML IV ONE ×2 (06:27→14:57)
[2023-06-13] MEDS ORDERED: POTASSIUM 25 MEQ EFFERV TAB ONE (06:27)
[2023-06-13] MEDS ORDERED: INSULIN REGULAR (HUMAN) 100 UNIT/ML SQ SCH (07:30)
[2023-06-13] MEDS: HEPARIN 5000 UNIT/ML 1 ML VIAL SQ SCH ×2 (09:00→20:40)
[2023-06-13] MEDS ORDERED: lisinopriL 5 MG TAB ONE (10:15)
[2023-06-13] MEDS ORDERED: HEPARIN 5000 UNIT/ML 1 ML VIAL ONE (10:15)
[2023-06-13 10:24] LABS: Potassium 3.2 mEq/L (3.5-5.1)
[2023-06-13] MEDS: lisinopriL 5 MG TAB PO SCH (11:00)
--- NOTE | 2023-06-13 11:51 | P.PN ---
Date of Service: 06/13/23 Subjective: No acute events overnight met with adaptive physical educator yesterday ROS: 10 point ROS as noted above, otherwise negative Physical exam GEN: Alert, oriented, NAD HEENT: Normal conjunctiva, sclera anicteric CV: Regular rate and rhythm, no edema Pulm: Nonlabored respirations on room air ABD: Soft, nontender, nondistended MSK: No joint tenderness Integumentary: No rashes Neuro: Normal speech, normal affect Vitals reviewed Assessment: New onset diabetes mellitus type 2 with ketoacidosis Hypokalemia Acute kidney injury Hypertension Plan: New onset diabetes mellitus type 2 with ketoacidosis Hypokalemia Anion gap still >12 Continue insulin drip, hourly accucheck, q4 chemistry A1c greater than 14 Discussed new onset diabetes at length with patient will need insulin at discharge hope to transition off insulin drip later today Acute kidney injury improved, monitor chemistry Hypertension Blood pressure elevated, started on lisinopril 5 mg daily T PPX: Heparin subcu Code status: Rotor Balancer Spent Managing Pts Care (In Minutes): 35 <Robert Camejo - Last Filed: 06/13/23 11:50> date of service: 06/13/23 Patient seen and examined on rounds. Agree with plan of care as noted above by SANDI Camejo with following corrections/additions: labs yesterday were incorrect. re-draw sill with gap and hyperglycemic. placed back on insulin drip improving, continue drip / icu JUANJO vs CKD start ACEI for HTN monitor daily <Marcel Padilla - Last Filed: 06/14/23 17:17>
[2023-06-13] MEDS: KCL 20 MEQ/100 mL IVPB 100 ML IV SCH ×2 (12:30→14:59)
[2023-06-13] MEDS ORDERED: KCL 20 MEQ/100 mL IVPB 100 ML IV ONE ×2 (12:36→14:56)
[2023-06-13 13:50] LABS: Potassium 3.2 mEq/L (3.5-5.1)
[2023-06-13 18:35] LABS: Bicarbonate 23 mEq/L (21-32); Glomerular Filtration Rate 65 ml/min (=/>90); Glucose Level 216 mg/dL (74-106); Potassium 3.2 mEq/L (3.5-5.1); Sodium Level 134 mEq/L (136-145)
[2023-06-13 18:37] LABS: BUN Blood Urea Nitrogen < 3 mg/dL (7-18)
[2023-06-13] MEDS ORDERED: Ringers Lactate 1,000 ML IV ONE (20:37)
[2023-06-13] MEDS: Ringers Lactate 1,000 ML IV SCH (20:39)
[2023-06-13] MEDS: ATORVASTATIN 40 MG TAB PO SCH (20:40)
[2023-06-13 21:19] LABS: Potassium 3.2 mEq/L (3.5-5.1)
[2023-06-13 21:22] VITALS: O2SAT 97
[2023-06-14 05:06] LABS: Hematocrit 43.8 % (39.6-49.0); MCV 82.9 fL (80-100); MPV 10.1 fL (7.6-11.3); Platelets 143 thou/uL (152-406); RBC Red Blood Cell Count 5.28 M/uL (4.33-5.43)
[2023-06-14 05:20] LABS: Phosphorus 1.7 mg/dL (2.5-4.9)
[2023-06-14 05:58] LABS: Potassium 3.4 mEq/L (3.5-5.1)
[2023-06-14] MEDS ORDERED: POTASSIUM PHOS 20 MEQ in NA CHLORIDE 0.9% 250 ML IV ONE (07:00)
[2023-06-14] MEDS ORDERED: POTASSIUM PHOS IN 0.9 % NACL 15 MMOL/250 ML BAG IV ONE (08:00)
[2023-06-14] MEDS ORDERED: INSULIN 70/30 100 UNITS/ML SQ ONE ×3 (08:11→17:15)
[2023-06-14] MEDS ORDERED: lisinopriL 5 MG TAB ONE (08:12)
[2023-06-14] MEDS: INSULIN 70/30 100 UNITS/ML SQ SCH (08:17)
[2023-06-14] MEDS: HEPARIN 5000 UNIT/ML 1 ML VIAL SQ SCH ×2 (08:18→21:48)
[2023-06-14] MEDS: lisinopriL 5 MG TAB PO SCH (08:18)
[2023-06-14] MEDS: Ringers Lactate 1,000 ML IV SCH ×2 (08:19→23:40)
[2023-06-14] MEDS ORDERED: Ringers Lactate 1,000 ML IV ONE (08:19)
--- NOTE | 2023-06-14 09:53 | P.PN ---
Date of Service: 06/14/23 Subjective: No acute events overnight Weaned off insulin drip tolerating diet ROS: 10 point ROS as noted above, otherwise negative Physical exam GEN: Alert, oriented, NAD HEENT: Normal conjunctiva, sclera anicteric CV: Regular rate and rhythm, no edema Pulm: Nonlabored respirations on room air ABD: Soft, nontender, nondistended MSK: No joint tenderness Integumentary: No rashes Neuro: Normal speech, normal affect Vitals reviewed Assessment: New onset diabetes mellitus type 2 with ketoacidosis-improved Hypokalemia Acute kidney injury Hypertension Plan: New onset diabetes mellitus type 2 with ketoacidosis-improved Hypokalemia Off insulin drip initiated /30 10units bid tolerating diet, will titrate insulin A1C>14 replete potassium Acute kidney injury improved, monitor chemistry Hypertension Blood pressure elevated, started on lisinopril 5 mg daily T PPX: Heparin subcu Code status: Almond Huller Spent Managing Pts Care (In Minutes): 35 <Robert Camejo - Last Filed: 06/14/23 09:45> Patient seen and examined on rounds and throughout day, spent >50% of time managing patient. Agree with plan of care as noted above by SANDI Camejo with following corrections/additions: gap closed; glc remains elevated throughout day. patient feeling better, eating more / tolerating diet reviewed MAR, calculated insulin received during last 24hrs of insulin drip seems to be ~60units/24hrs glc >300 today after 10u 70/30 in AM will increase to 30u of 70/30 BID starting this evening with close monitoring gap remains closed ok to transfer to floor today anticipate dc home tomorrow if glc levels more controlled <Marcel Padilla - Last Filed: 06/14/23 17:05>
[2023-06-14] MEDS ORDERED: D50W 25 GM/50 ML SYRINGE IV PRN (12:35)
[2023-06-14] MEDS ORDERED: INSULIN REGULAR (HUMAN) 100 UNIT/ML SQ ONE (12:50)
[2023-06-14] MEDS ORDERED: INSULIN REGULAR (HUMAN) 100 UNIT/ML ONE (13:00)
[2023-06-14 16:21] LABS: Potassium 3.4 mEq/L (3.5-5.1)
[2023-06-14] MEDS ORDERED: INSULIN 70/30 100 UNITS/ML SQ SCH ×2 (16:30→17:00)
[2023-06-14] MEDS: ATORVASTATIN 40 MG TAB PO SCH (21:49)
[2023-06-15] MEDS ORDERED: POTASSIUM 25 MEQ EFFERV TAB PO ONE (04:14)
[2023-06-15] MEDS: INSULIN 70/30 100 UNITS/ML SQ SCH ×2 (08:36→17:02)
[2023-06-15] MEDS: HEPARIN 5000 UNIT/ML 1 ML VIAL SQ SCH (08:37)
[2023-06-15] MEDS: lisinopriL 5 MG TAB PO SCH (08:37)
[2023-06-15] MEDS ORDERED: POTASSIUM CL SA 10 MEQ TAB PO ONE ×2 (12:32→13:00)
[2023-06-15] MEDS: POTASSIUM CL SA 10 MEQ TAB PO ONE (12:34)
--- NOTE | 2023-06-15 17:17 | P.DS ---
Admission Date: 06/11/23 Discharge Date: 06/15/23 Disposition: ROUTINE DISCHARGE Discharge Condition: GOOD Reason for Admission: DKA Brief History of Present Illness: 33-year-old male with no known medical history presents emergency department chief complaint of high blood pressure. He states that he went to a medical clinic including was referred to the emergency department for his elevated blood pressure. He also admits to feeling fatigued and having frequent urination for the past 1 month or so. He was evaluated in the emergency department his labs were significant for sodium 130 potassium 2.8 chloride 94 bicarb 14 creatinine 1.89 GFR 47 glucose 417 ABG revealed pH 7.3 pCO2 29.6 pO2 42.8 Potassium repletion has been initiated, patient has been admitted to the ICU for further management of DKA. Hospital Course: Assessment: New onset diabetes mellitus type 2 with ketoacidosis-improved Hypokalemia Acute kidney injury Hypertension Patient was admitted to the hospital for new onset diabetes mellitus type 2 with diabetic ketoacidosis. He was initially managed on an insulin drip until anion gap was closed, he was subsequently transition to 70/30 insulin and this was titrated. A1c was obtained and was >14. He is currently at 35 units of 70/30 insulin twice daily with blood sugars running in the 200s. He was also noted to be hypertensive and had elevated HDL. He is currently tolerating a diet, he has been seen by social worker school and diabetic educators who have provided him with additional information and community resources regarding insulin, glucometers, strips etc. Prescriptions sent to [facility] pharmacy in [place] for Insulin 70/30 35 units subcutaneous twice daily for management of diabetes/elevated blood sugar Lisinopril 5 mg daily for blood pressure Atorvastatin 40 mg daily for elevated cholesterol Glucose test strips, glucometer, lancets Patient should adjust/titrate 70/30 insulin 1-2 times per week until fasting glucose in the morning is less than 130 If glucose in the morning is greater than 200 add 2 units in the morning and 2 units at night if morning glucose is between 131 and 200 increase by 1 unit in the morning and 1 unit at night If morning glucoses between 70 and 130 do not change the dose If morning glucose is less than 70 decrease by 2 units in the morning and 2 units at night Follow-up with primary care provider regarding titration/any questions Please establish yourself with and follow-up with a primary care doctor in the next 1 week You should also attend diabetic education meetings on here at the hospital Vital Signs/Physical Exam: Temp Pulse Resp BP Pulse Ox 97.6 F 71 17 132/72 99 06/15/23 16:00 06/15/23 16:00 06/15/23 16:00 06/15/23 16:00 06/15/23 16:00 General: Alert, In no apparent distress, Oriented x3 HEENT: Atraumatic, PERRLA Neck: Supple, JVD not distended Respiratory: Clear to auscultation bilaterally, Normal air movement Cardiovascular: Regular rate/rhythm, Normal S1 S2 Gastrointestinal: Normal bowel sounds, No tenderness Musculoskeletal: No tenderness Integumentary: No rashes Neurological: Normal speech, Normal tone, Normal affect Laboratory Data at Discharge: WBC 5.30 thou/uL (4.3-10.9) 06/14/23 04:42 Hgb 14.9 g/dL (13.6-17.9) D 06/14/23 04:42 Hct 43.8 % (39.6-49.0) 06/14/23 04:42 Plt Count 143 thou/uL (152-406) L 06/14/23 04:42 PT 11.4 SECONDS (9.5-12.5) 06/13/23 04:59 INR 1.04 06/13/23 04:59 Sodium 136 mEq/L (136-145) 06/15/23 02:50 Potassium 3.3 mEq/L (3.5-5.1) L 06/15/23 11:01 BUN 7 mg/dL (7-18) 06/15/23 02:50 Creatinine 1.20 mg/dL (0.70-1.30) 06/15/23 02:50 Glucose 256 mg/dL (74-106) H 06/15/23 02:50 Phosphorus 1.7 mg/dL (2.5-4.9) L 06/14/23 04:42 Magnesium 2.0 mg/dL (1.6-2.4) 06/15/23 02:50 Total Bilirubin 0.8 mg/dL (0.2-1.0) 06/13/23 04:59 AST 26 U/L (15-37) 06/13/23 04:59 ALT 38 U/L (16-61) 06/13/23 04:59 Alkaline Phosphatase 93 U/L (45-117) 06/13/23 04:59 Triglycerides 426 mg/dL (<150) H 06/12/23 11:33 Cholesterol 260 mg/dL (<200) H 06/12/23 11:33 LDL Cholesterol Direct 170 mg/dL (100-129) H 06/12/23 11:33 HDL Cholesterol 27 mg/dL (40-60) L 06/12/23 11:33 Cholesterol/HDL Ratio 9.63 06/12/23 11:33 Home Medications: Atorvastatin Calcium 40 mg PO DAILY #30 tab 06/15/23 Blood Sugar Diagnostic [Glucose Test Strip] 2 each [facility] #50 strip 06/15/23 Blood-Glucose Meter [Blood Glucose Meter] 1 each [facility] #1 ea 06/15/23 Insulin 70/30 NPH/Reg Human [Novolin 70/30*] 35 unit SQ BIDAC #20 ml 06/15/23 Lancets 2 each [facility] #50 ea 06/15/23 Lancing Device 1 each [facility] #100 ea 06/15/23 lisinopriL [Lisinopril] 5 mg PO DAILY #30 tab 06/15/23 New Medications: Atorvastatin Calcium 40 mg PO DAILY #30 tab Blood-Glucose Meter [Blood Glucose Meter] 1 each [facility] #1 ea Blood Sugar Diagnostic [Glucose Test Strip] 2 each [facility] #50 strip Lancets 2 each [facility] #50 ea Lancing Device 1 each [facility] #100 ea lisinopriL [Lisinopril] 5 mg PO DAILY #30 tab Insulin 70/30 NPH/Reg Human [Novolin 70/30*] 35 unit SQ BIDAC #20 ml Physician Discharge Instructions: Patient was admitted to the hospital for new onset diabetes mellitus type 2 with diabetic ketoacidosis. He was initially managed on an insulin drip until anion gap was closed, he was subsequently transition to 70/30 insulin and this was titrated. A1c was obtained and was >14. He is currently at 35 units of 70/30 insulin twice daily with blood sugars running in the 200s. He was also noted to be hypertensive and had elevated HDL. He is currently tolerating a diet, he has been seen by social worker school and diabetic educators who have provided him with additional information and community resources regarding insulin, glucometers, strips etc. Prescriptions sent to [facility] pharmacy in [place] for Insulin 70/30 35 units subcutaneous twice daily for management of diabetes/elevated blood sugar Lisinopril 5 mg daily for blood pressure Atorvastatin 40 mg daily for elevated cholesterol Glucose test strips, glucometer, lancets Patient should adjust/titrate 70/30 insulin 1-2 times per week until fasting glucose in the morning is less than 130 If glucose in the morning is greater than 200 add 2 units in the morning and 2 units at night if morning glucose is between 131 and 200 increase by 1 unit in the morning and 1 unit at night If morning glucoses between 70 and 130 do not change the dose If morning glucose is less than 70 decrease by 2 units in the morning and 2 units at night Follow-up with primary care provider regarding titration/any questions Please establish yourself with and follow-up with a primary care doctor in the next 1 week You should also attend diabetic education meetings on here at the hospital Diet: ADA Activity: Ad chantelle Followup: NONE,NONE [Primary Care Provider] - 1 Week Time spent managing pt's care (in minutes): 35
[2023-06-15 17:18] VITALS: BP 132/72; TEMP 97.6
== END 2023-06-15 18:22 | disposition home or self-care (01) | DRG 638 ==
LOC: ER 11:50 → ERHOLD 14:09 → 3RD-ICU 06-13 17:28 → 2ND 06-14 19:40
PROVIDERS: ADMIT Hospitalist; ATTEND Hospitalist
DX: E11.10 Type 2 diabetes mellitus with ketoacidosis without coma (principal); N17.9 Acute kidney failure, unspecified; Z68.42 Body mass index [BMI] 45.0-49.9, adult; E66.9 Obesity, unspecified; E87.6 Hypokalemia; I10 Essential (primary) hypertension; Z79.4 Long term (current) use of insulin; Z79.899 Other long term (current) drug therapy
CPT/HCPCS: 36415; 80048; 80061; 80076; 81001; 82805; 82947; 83036; 83735; 84100; 84132; 84439; 84443; 85025; 85027; 85610; 93005; 96365; 96366; 99285; J1644; J1815; J3475; J3480; J7030; J7040; J7050; J7120